=== PATIENT | male | born 1985 | race Caucasian/White ===

== ENCOUNTER 2018-02-14 11:47 | Emergency (ER) | payer BC ==
[2018-02-14 12:42] VITALS: BP 123/72; PULSE 81; RESP 18; TEMP 98.3
[2018-02-14 14:29] LABS: Basophils % (A) 0 %; Eosinophils # (A) 0.1 k/uL (0-0.7); Eosinophils % (A) 1 %; HCT 42.9 % (39.0-53.0); HGB 15.1 gm/dL (13.0-17.5); Lymphocytes # (A) 0.9 k/uL (1.0-4.8); Lymphocytes % (A) 9 %; MCH 31.9 pg (25.0-35.0); MCHC 35.2 g/dL (31.0-37.0); MCV 90.4 fL (80.0-100.0); Mean Platelet Volume 7.5; Monocytes # (A) 0.4 k/uL (0-1.0); Monocytes % (A) 4 %; Neutrophils # (A) 9.2 k/uL (1.3-7.7); Neutrophils % (A) 86 %; Platelet Count 178 k/uL (150-450); RBC 4.74 m/uL (4.30-5.90); RDW 12.7 % (11.5-15.5); WBC 10.7 k/uL (3.8-10.6)
[2018-02-14 14:40] LABS: ALT 39 U/L (21-72); AST 21 U/L (17-59); Albumin 4.5 g/dL (3.5-5.0); Alkaline Phosphatase 40 U/L (38-126); Anion Gap 8 mmol/L; Blood Urea Nitrogen 13 mg/dL (9-20); C Reactive Protein 9.6 mg/L (<10.0); Carbon Dioxide 24 mmol/L (22-30); Chloride 108 mmol/L (98-107); Glucose 112 mg/dL (74-99); Magnesium 2.3 mg/dL (1.6-2.3); Potassium 4.5 mmol/L (3.5-5.1); Sodium 140 mmol/L (137-145); Total Bilirubin 0.8 mg/dL (0.2-1.3)
--- NOTE | 2018-02-14 15:00 | ED ---
General Adult HPI - General Chief complaint: Extremity Problem,Nontraumatic Stated complaint: Hand and feet swelling Source: patient, RN notes reviewed, old records reviewed Mode of arrival: ambulatory Limitations: no limitations - History of Present Illness Initial comments: 32-year-old male patient presents with new onset swelling in hands and ankles bilaterally. Patient states that at approximately 9 PM last night he noticed swelling in his ankles and his feet bilaterally. When patient woke up this morning he noticed that in addition to his ankles and feet being swollen his hands were significantly swollen as well. Patient proceeded to continue to go to work, where he felt pain in the the plantar aspect of his feet bilaterally, eventually prompting him to seek treatment. Pt additionally has erythema, swelling and pain at the greater trochanter in his R leg. Pt states that this began today as well. Pt denies recent infection, cough or congestion, history of cardiac or kidney disease. Pt denies changes in vision, weakness or paresthesias in extremities. Systemic: Pt denies fatigue, myalgia, fever/chills, rash. Pt denies weakness, night sweats, weight loss. Neuro: Pt denies headache, visual disturbances, syncope or pre-syncope. HEENT: Pt denies ocular discharge or irritation, otalgia, rhinorrhea, pharyngitis or notable lymphadenopathy. Cardiopulmonary: Pt denies chest pain, SOB, heart palpitations, dyspnea on exertion. Abdominal/GI: Pt denies abdominal pain, n/v/d. : Pt denies dysuria, burning w/ urination, frequency/urgency. Denies new onset urinary or bowel incontinence. MSK: Pt denies myalgia, loss of strength or function in extremities. - Related Data Home Medications Medication Instructions Recorded Confirmed buPROPion HCL [Wellbutrin XL] 300 mg PO DAILY 02/14/18 02/14/18 methylPREDNISolone [Medrol Dose 4 mg PO DIRECTED 02/14/18 02/14/18 Pack] Previous Rx's Medication Instructions Recorded predniSONE 50 mg PO DAILY #5 tab 02/14/18 Allergies Allergy/AdvReac Type Severity Reaction Status Date / Time No Known Allergies Allergy Verified 02/14/18 12:42 Review of Systems ROS Statement: Those systems with pertinent positive or pertinent negative responses have been documented in the HPI. ROS Other: All systems not noted in ROS Statement are negative. Past Medical History Past Medical History: No Reported History History of Any Multi-Drug Resistant Organisms: None Reported Past Surgical History: No Surgical Hx Reported Past Psychological History: No Psychological Hx Reported Smoking Status: Current every day smoker Past Alcohol Use History: Occasional Past Drug Use History: None Reported General Exam - General Exam Comments Initial Comments: Constitutional: NAD, AOX3, Pt has pleasant affect. HEENT: NC/AT, trachea midline, neck supple, no lymphadenopathy. Posterior pharynx non erythematous, without exudates. External ears appear normal, without discharge. Mucous membranes moist. Eyes PERRLA, EOM intact. There is no scleral icterus. No pallor noted. Cardiopulmonary: RRR, no murmurs, rubs or gallops, no JVD noted. Lungs CTAB in anterior and posterior chavira. No peripheral edema. Abdominal exam: Abdomen soft and non-distended. Abdomen non-tender to palpation in all 4 quadrants. Bowel sounds active in LLQ. No hepatosplenomegaly. Neuro: CN II-XII grossly intact. MSK: Approximately 2 x 2" area of erythema and tenderness located at right greater trochanter, area is not warm to touch, no streaking or exudate. Feet and ankles are diffusely edematous bilaterally, non pitting, both are nonerythematous and non tender to palpation. Hands are edematous bilaterally, flexion of fingers is partially limited due to edema. Hands are non erythematous , non tender to palpation bilaterally. Posterior calf Nontender to palpation, Homans negative bilaterally. Limitations: no limitations Course Vital Signs 02/14/18 12:37 Temperature 98.3 F Pulse Rate 81 Respiratory 18 Rate Blood Pressure 123/72 O2 Sat by Pulse 96 Oximetry Medical Decision Making - Medical Decision Making 32-year-old male patient presents to ED with new onset bilateral hand, foot and ankle swelling. Hands and feet are not tender to palpation, but feet/ankles make ambulation painful. Additionally pt has erythema on R greater trochanter that is mildly tender to palpation. Patient underwent investigation for pathology including CBC, CMP, BNP, CRP and serum magnesium. The CBC displayed a leukocytosis at 10.7 but all labs were otherwise within normal limits. Patient's vital signs are stable. Plain film of right femur did not display any acute process. Patient administered IM Decadron, will be discharged with prednisone. Patient to follow-up in 1-2 days with student career development specialist and primary care physician. Patient to return if new signs or symptoms develop, or if current symptoms worsen. - Lab Data Result diagrams: 02/14/18 13:47 02/14/18 13:47 Lab Results 02/14/18 02/14/18 02/14/18 Range/Units 13:47 13:47 13:47 WBC 10.7 H (3.8-10.6) k/uL RBC 4.74 (4.30-5.90) m/uL Hgb 15.1 (13.0-17.5) gm/dL Hct 42.9 (39.0-53.0) % MCV 90.4 (80.0-100.0) fL MCH 31.9 (25.0-35.0) pg MCHC 35.2 (31.0-37.0) g/dL RDW 12.7 (11.5-15.5) % Plt Count 178 (150-450) k/uL Neutrophils % 86 % Lymphocytes % 9 % Monocytes % 4 % Eosinophils % 1 % Basophils % 0 % Neutrophils # 9.2 H (1.3-7.7) k/uL Lymphocytes # 0.9 L (1.0-4.8) k/uL Monocytes # 0.4 (0-1.0) k/uL Eosinophils # 0.1 (0-0.7) k/uL Basophils # 0.0 (0-0.2) k/uL Sodium 140 (137-145) mmol/L Potassium 4.5 (3.5-5.1) mmol/L Chloride 108 H (98-107) mmol/L Carbon Dioxide 24 (22-30) mmol/L Anion Gap 8 mmol/L BUN 13 (9-20) mg/dL Creatinine 0.76 (0.66-1.25) mg/dL Est GFR (CKD-EPI)AfAm >90 (>60 ml/min/1.73 sqM) Est GFR (CKD-EPI)NonAf >90 (>60 ml/min/1.73 sqM) Glucose 112 H (74-99) mg/dL Calcium 10.0 (8.4-10.2) mg/dL Magnesium 2.3 (1.6-2.3) mg/dL Total Bilirubin 0.8 (0.2-1.3) mg/dL AST 21 (17-59) U/L ALT 39 (21-72) U/L Alkaline Phosphatase 40 (38-126) U/L C-Reactive Protein 9.6 (<10.0) mg/L NT-Pro-B Natriuret Pep 37 pg/mL Total Protein 7.0 (6.3-8.2) g/dL Albumin 4.5 (3.5-5.0) g/dL Disposition Clinical Impression: Edema Disposition: HOME SELF-CARE Condition: Good Instructions: Autoimmune Disease (ED) Additional Instructions: Patient to adhere to previously discussed treatment plan and will take medication(s) as directed. Patient to follow up with PCP in 1-2 days. Patient to return to ED if symptoms do not improve. Prescriptions: predniSONE 50 mg PO DAILY #5 tab Is patient prescribed a controlled substance at d/c from ED?: No Referrals: Girish Bennett MD [Primary Care Provider] - 1-2 days Livier Love MD [STAFF PHYSICIAN] - 1-2 days
[2018-02-14] MEDS ORDERED: DEXAMETHASONE SOD PHOSPHATE 10 MG/ML 1 ML VIAL IM STA (16:21)
--- NOTE | 2018-02-14 16:38 | XR ---
PROCEDURE: XR femur RT - 4V DATE AND TIME: 02/14/2018 1:59 PM CLINICAL INDICATION: Swelling and pain. TECHNIQUE: Department protocol. COMPARISON: 09/10/2013 FINDINGS: There is no fracture or malalignment. The soft tissues are unremarkable. IMPRESSION: NO ACUTE PROCESS.
== END 2018-02-14 17:07 | disposition home or self-care (01) ==
LOC: EC 11:47
DX: R60.0 Localized edema (principal); L53.9 Erythematous condition, unspecified; M79.671 Pain in right foot; M79.672 Pain in left foot; M79.604 Pain in right leg; F17.200 Nicotine dependence, unspecified, uncomplicated; Z79.52 Long term (current) use of systemic steroids; Z79.899 Other long term (current) drug therapy
CPT/HCPCS: 36415; 83880; 80053; 83735; 85025; 86140; 73552; 99284; 96372; J1100

== ENCOUNTER 2018-02-16 09:34 | Emergency (ER) | payer BC ==
[2018-02-16] MEDS ORDERED: hydrOXYzine HCL 25 MG TAB PO STA (09:57)
[2018-02-16] MEDS ORDERED: KETOROLAC 30 MG/ML 1 ML VIAL IVP STA (09:57)
[2018-02-16] MEDS ORDERED: SODIUM CHLORIDE 0.9% 1,000 ML IV STA ×2 (09:57)
[2018-02-16] MEDS ORDERED: SODIUM CHLORIDE 0.9% 500 ML 500 ML IV STA (09:57)
[2018-02-16] MEDS ORDERED: FAMOTIDINE 20 MG/2 ML VIAL IV STA (09:57)
[2018-02-16] MEDS ORDERED: diphenhydrAMINE 50 MG/ML 1 ML VIAL IVP STA (09:57)
[2018-02-16] MEDS ORDERED: DEXAMETHASONE SOD PHOSPHATE 10 MG/ML 1 ML VIAL IV STA (09:57)
--- NOTE | 2018-02-16 10:53 | ED ---
Allergic Reaction HPI - General Chief complaint: Extremity Problem,Nontraumatic Stated complaint: PAIN AND SWELLING IN HANDS AND FEET Time Seen by Provider: 02/16/18 09:48 Source: patient, RN notes reviewed, old records reviewed Mode of arrival: ambulatory Limitations: no limitations - History of Present Illness Initial Comments: This is a 32-year-old male to the ER for evaluation. Patient has a for evaluation regards to ALLERGIC reaction. Patient has hives generalized, whole body, hands feet Chiki torso. No significant medication exposure no prior history of ALLERGIC reaction. No travel history or sick contacts no flulike symptoms. No headache nausea vomiting abdominal pain. No diarrhea patient was seen in emergency room earlier this week for similar complaints. Patient given steroids and symptoms did improve but they have returned MD Complaint: allergic reaction, hives -: days(s) Exposure: unknown Symptoms: rash, itching, facial swelling Treatment Prior to Arrival: none Previous Allergy History: none - Related Data Home Medications Medication Instructions Recorded Confirmed buPROPion HCL [Wellbutrin XL] 300 mg PO DAILY 02/14/18 02/16/18 Previous Rx's Medication Instructions Recorded predniSONE 50 mg PO DAILY #5 tab 02/14/18 Dexamethasone [Decadron] 4 mg PO BID #10 tablet 02/16/18 Famotidine [Pepcid] 40 mg PO BID #30 tab 02/16/18 hydrOXYzine HCL [Atarax] 50 mg PO TID #30 tab 02/16/18 Allergies Allergy/AdvReac Type Severity Reaction Status Date / Time No Known Allergies Allergy Verified 02/16/18 10:09 Review of Systems ROS Statement: Those systems with pertinent positive or pertinent negative responses have been documented in the HPI. ROS Other: All systems not noted in ROS Statement are negative. Past Medical History Past Medical History: No Reported History History of Any Multi-Drug Resistant Organisms: None Reported Past Surgical History: No Surgical Hx Reported Past Psychological History: No Psychological Hx Reported Smoking Status: Current every day smoker Past Alcohol Use History: Occasional Past Drug Use History: None Reported General Exam - General Exam Comments Initial Comments: Diffuse and generalized body urticaria and edema mild, rash is blanchable, NH and neck, no facial tongue or oral swelling, no stridor Limitations: no limitations General appearance: alert, in no apparent distress Head exam: Present: atraumatic, normocephalic, normal inspection Eye exam: Present: normal appearance, PERRL, EOMI. Absent: scleral icterus, conjunctival injection, periorbital swelling ENT exam: Present: normal exam, mucous membranes moist Neck exam: Present: normal inspection. Absent: tenderness, meningismus, lymphadenopathy Respiratory exam: Present: normal lung sounds bilaterally. Absent: respiratory distress, wheezes, rales, rhonchi, stridor Cardiovascular Exam: Present: regular rate, normal rhythm, normal heart sounds. Absent: systolic murmur, diastolic murmur, rubs, gallop, clicks GI/Abdominal exam: Present: soft, normal bowel sounds. Absent: distended, tenderness, guarding, rebound, rigid Extremities exam: Present: normal inspection, full ROM, normal capillary refill. Absent: tenderness, pedal edema, joint swelling, calf tenderness Back exam: Present: normal inspection Neurological exam: Present: alert, oriented X3, CN II-XII intact Psychiatric exam: Present: normal affect, normal mood Skin exam: Present: warm, dry, intact, normal color. Absent: rash Course Vital Signs 02/16/18 02/16/18 02/16/18 09:37 10:16 10:20 Temperature 98.0 F Pulse Rate 84 Respiratory 20 Rate Blood Pressure 118/85 125/78 O2 Sat by Pulse 99 96 97 Oximetry 02/16/18 02/16/18 02/16/18 10:30 10:40 10:50 Temperature Pulse Rate 78 71 66 Respiratory 14 17 16 Rate Blood Pressure 125/78 125/78 125/78 O2 Sat by Pulse 95 97 Oximetry 02/16/18 02/16/18 02/16/18 11:00 11:41 12:24 Temperature 98.7 F Pulse Rate 69 69 94 Respiratory 18 16 16 Rate Blood Pressure 125/78 118/69 117/82 O2 Sat by Pulse 97 95 98 Oximetry Medical Decision Making - Medical Decision Making 32 male the ER with recurrent ALLERGIC reaction. Patient given steroids and antihistamines. Patient discharged home - Lab Data Result diagrams: 02/16/18 10:45 02/16/18 10:45 Lab Results 02/16/18 02/16/18 02/16/18 Range/Units 10:45 10:45 10:45 WBC 12.1 H (3.8-10.6) k/uL RBC 4.78 (4.30-5.90) m/uL Hgb 14.6 (13.0-17.5) gm/dL Hct 43.8 (39.0-53.0) % MCV 91.6 (80.0-100.0) fL MCH 30.6 (25.0-35.0) pg MCHC 33.4 (31.0-37.0) g/dL RDW 12.9 (11.5-15.5) % Plt Count 201 (150-450) k/uL Neutrophils % 83 % Lymphocytes % 11 % Monocytes % 5 % Eosinophils % 1 % Basophils % 0 % Neutrophils # 10.1 H (1.3-7.7) k/uL Lymphocytes # 1.3 (1.0-4.8) k/uL Monocytes # 0.6 (0-1.0) k/uL Eosinophils # 0.1 (0-0.7) k/uL Basophils # 0.0 (0-0.2) k/uL PT (9.0-12.0) sec INR (<1.2) APTT (22.0-30.0) sec Sodium 140 (137-145) mmol/L Potassium 4.2 (3.5-5.1) mmol/L Chloride 107 (98-107) mmol/L Carbon Dioxide 26 (22-30) mmol/L Anion Gap 7 mmol/L BUN 14 (9-20) mg/dL Creatinine 0.83 (0.66-1.25) mg/dL Est GFR (CKD-EPI)AfAm >90 (>60 ml/min/1.73 sqM) Est GFR (CKD-EPI)NonAf >90 (>60 ml/min/1.73 sqM) Glucose 112 H (74-99) mg/dL Calcium 9.5 (8.4-10.2) mg/dL Phosphorus 3.0 (2.5-4.5) mg/dL Magnesium 2.0 (1.6-2.3) mg/dL Total Bilirubin 0.7 (0.2-1.3) mg/dL AST 20 (17-59) U/L ALT 37 (21-72) U/L Alkaline Phosphatase 44 (38-126) U/L Total Creatine Kinase 44 L (55-170) U/L CK-MB (CK-2) 0.5 (0.0-2.4) ng/mL CK-MB (CK-2) Rel Index 1.1 Troponin I <0.012 (0.000-0.034) ng/mL Total Protein 6.7 (6.3-8.2) g/dL Albumin 4.0 (3.5-5.0) g/dL 02/16/18 Range/Units 10:45 WBC (3.8-10.6) k/uL RBC (4.30-5.90) m/uL Hgb (13.0-17.5) gm/dL Hct (39.0-53.0) % MCV (80.0-100.0) fL MCH (25.0-35.0) pg MCHC (31.0-37.0) g/dL RDW (11.5-15.5) % Plt Count (150-450) k/uL Neutrophils % % Lymphocytes % % Monocytes % % Eosinophils % % Basophils % % Neutrophils # (1.3-7.7) k/uL Lymphocytes # (1.0-4.8) k/uL Monocytes # (0-1.0) k/uL Eosinophils # (0-0.7) k/uL Basophils # (0-0.2) k/uL PT 10.3 (9.0-12.0) sec INR 1.1 (<1.2) APTT 26.1 (22.0-30.0) sec Sodium (137-145) mmol/L Potassium (3.5-5.1) mmol/L Chloride (98-107) mmol/L Carbon Dioxide (22-30) mmol/L Anion Gap mmol/L BUN (9-20) mg/dL Creatinine (0.66-1.25) mg/dL Est GFR (CKD-EPI)AfAm (>60 ml/min/1.73 sqM) Est GFR (CKD-EPI)NonAf (>60 ml/min/1.73 sqM) Glucose (74-99) mg/dL Calcium (8.4-10.2) mg/dL Phosphorus (2.5-4.5) mg/dL Magnesium (1.6-2.3) mg/dL Total Bilirubin (0.2-1.3) mg/dL AST (17-59) U/L ALT (21-72) U/L Alkaline Phosphatase (38-126) U/L Total Creatine Kinase (55-170) U/L CK-MB (CK-2) (0.0-2.4) ng/mL CK-MB (CK-2) Rel Index Troponin I (0.000-0.034) ng/mL Total Protein (6.3-8.2) g/dL Albumin (3.5-5.0) g/dL Disposition Clinical Impression: Allergic urticaria Disposition: HOME SELF-CARE Condition: Good Instructions: Urticaria (ED) Prescriptions: Dexamethasone [Decadron] 4 mg PO BID #10 tablet Famotidine [Pepcid] 40 mg PO BID #30 tab hydrOXYzine HCL [Atarax] 50 mg PO TID #30 tab Is patient prescribed a controlled substance at d/c from ED?: No Referrals: Girish Bennett MD [Primary Care Provider] - 1-2 days
[2018-02-16 11:32] LABS: Basophils % (A) 0 %; Eosinophils # (A) 0.1 k/uL (0-0.7); Eosinophils % (A) 1 %; HCT 43.8 % (39.0-53.0); HGB 14.6 gm/dL (13.0-17.5); Lymphocytes # (A) 1.3 k/uL (1.0-4.8); Lymphocytes % (A) 11 %; MCH 30.6 pg (25.0-35.0); MCHC 33.4 g/dL (31.0-37.0); MCV 91.6 fL (80.0-100.0); Mean Platelet Volume 7.5; Monocytes # (A) 0.6 k/uL (0-1.0); Monocytes % (A) 5 %; Neutrophils # (A) 10.1 k/uL (1.3-7.7); Neutrophils % (A) 83 %; Platelet Count 201 k/uL (150-450); RBC 4.78 m/uL (4.30-5.90); RDW 12.9 % (11.5-15.5); WBC 12.1 k/uL (3.8-10.6)
[2018-02-16 11:45] VITALS: RESP 16
[2018-02-16 11:48] LABS: ALT 37 U/L (21-72); AST 20 U/L (17-59); Alkaline Phosphatase 44 U/L (38-126); Anion Gap 7 mmol/L; Blood Urea Nitrogen 14 mg/dL (9-20); Calcium 9.5 mg/dL (8.4-10.2); Carbon Dioxide 26 mmol/L (22-30); Chloride 107 mmol/L (98-107); Glucose 112 mg/dL (74-99); Potassium 4.2 mmol/L (3.5-5.1); Sodium 140 mmol/L (137-145); Total Bilirubin 0.7 mg/dL (0.2-1.3); Total Protein 6.7 g/dL (6.3-8.2)
[2018-02-16 11:55] LABS: INR 1.1 (<1.2); Partial Thromboplastin Time 26.1 sec (22.0-30.0); Prothrombin Time 10.3 sec (9.0-12.0)
[2018-02-16 11:57] LABS: Creatine Kinase 44 U/L (55-170)
[2018-02-16 12:10] LABS: Creatine Kinase MB 0.5 ng/mL (0.0-2.4); Troponin I <0.012 ng/mL (0.000-0.034)
[2018-02-16 12:26] VITALS: BP 117/82; PULSE 94; TEMP 98.7
--- NOTE | 2018-02-17 05:27 | CDI ---
Dear Girish Griffitsh DO: Please do addendum History of Present Illness and Physical Examination. Thank you, Evaristo Green, [employer]. If you have any questions, please contact Truck Operator at [phone]. [facility]
== END 2018-02-16 12:24 | disposition home or self-care (01) ==
LOC: EC 09:34
DX: L50.0 Allergic urticaria (principal); F17.200 Nicotine dependence, unspecified, uncomplicated; Z79.899 Other long term (current) drug therapy
CPT/HCPCS: 36415; 80053; 82550; 82553; 83735; 84100; 84484; 85025; 85610; 85730; 87040; 99284; 96374; 96375 ×3; 96361 ×2; J1200; J1100; J1885